=== PATIENT | female | born 2000 | race African-American/Black ===

== ENCOUNTER 2021-06-09 23:47 | Inpatient (IN) ==
[2021-06-10] MEDS ORDERED: BUTORPHANOL 2 MG/ML VIAL IV PRN (00:08)
[2021-06-10] MEDS ORDERED: ONDANSETRON 4 MG/2 ML VIAL IV PRN ×2 (00:08→16:10)
[2021-06-10] MEDS ORDERED: AMPICILLIN INJ 2,000 MG in SODIUM CHLORIDE 0.9% 100 ML IV ONE (00:12)
[2021-06-10] MEDS: LACTATED RINGERS 1,000 ML IV SCH ×3 (00:50→07:23)
[2021-06-10 01:01] LABS: Basophils % 0.5 % (0.0-0.8); Eosinophils # 0.1 10*3/uL (0.0-0.87); Eosinophils % 0.6 % (0.00-10.9); Hematocrit 31.6 VOL% (35.7-47.0); Hemoglobin 10.3 GM/DL (12.0-16.0); Immature Granulocytes % 0.4 %; Immature Granulocytes Absolute 0.03 #; Lymphocytes # 2.4 10*3/uL (1.4-4.0); Lymphocytes % 30.2 % (21.3-54.2); Mean Corpuscular HGB Conc 32.6 GM/DL (32-36); Mean Corpuscular Volume 91.9 FL (87-102); Mean Platelet Volume 10.6 FL (9.6-12.0); Monocytes % 10.5 % (1.7-12.7); Neutrophils % 57.8 % (38.7-73.9); Platelet Count 276 T/CUMM (130-400); Red Blood Count 3.44 MC/CUMM (3.8-5.5); Red Cell Distribution Width 13.2 % (9.3-17.3)
[2021-06-10 01:33] LABS: Albumin 2.8 G/DL (3.4-5.0); Bilirubin,Total 0.5 MG/DL (0.20-1.00); Calcium 8.4 MG/DL (8.5-10.1); Osmolality,Calculated 270.7 MOS/KG (273-304); Potassium 3.5 MMOL/L (3.5-5.1); Total Protein 6.9 G/DL (6.4-8.2)
[2021-06-10] MEDS ORDERED: OXYTOCIN/LR 20 UNIT/1,000 ML BAG IV PRN (03:04)
[2021-06-10] MEDS ORDERED: hydrOXYzine HCL 25 MG/1 ML VIAL IM PRN (04:17)
[2021-06-10] MEDS ORDERED: ePHEDrine 50 MG/ML VIAL IV PRN (04:17)
[2021-06-10] MEDS ORDERED: NALOXONE 0.4 MG/ML VIAL IV PRN (04:17)
[2021-06-10] MEDS ORDERED: diphenhydrAMINE 50 MG/1 ML VIAL IV PRN ×2 (04:17)
[2021-06-10] MEDS ORDERED: PROMETHAZINE 25 MG/1 ML VIAL IM PRN (04:17)
[2021-06-10] MEDS ORDERED: CITRIC ACID/SODIUM CITRATE 30 ML UDCUP PO ONE (04:17)
[2021-06-10] MEDS ORDERED: FAMOTIDINE 20 MG/2 ML VIAL IV ONE (04:17)
[2021-06-10] MEDS ORDERED: fentaNYL 2 MCG/ROPIV 0.2% EPID 100 ML EPIDURAL SCH (04:30)
[2021-06-10] MEDS: AMPICILLIN INJ 1,000 MG in SODIUM CHLORIDE 0.9% 100 ML IV SCH ×2 (04:47→10:32)
[2021-06-10] MEDS ORDERED: METHYLERGONOVINE 0.2 MG/1 ML AMP ONE (06:26)
[2021-06-10] MEDS ORDERED: TRANEXAMIC ACID 1,000 MG/10 ML VIAL ONE (06:26)
[2021-06-10] MEDS ORDERED: miSOPROStoL 200 MCG TABLET ONE (06:26)
[2021-06-10] MEDS ORDERED: CARBOPROST TROMETHAMINE 250 MCG/ML AMP IM ONE (06:27)
[2021-06-10] MEDS ORDERED: TERBUTALINE 1 MG/1 ML VIAL SUBCUT ONE (06:33)
[2021-06-10 06:34] LABS: Bacteria,Urine Occasional /HPF (Few); Bilirubin,Urine Negative (Negative); Blood, Urine Negative (Negative); Glucose,Urine (UA) Negative (Negative); Ketones,Urine Negative (Negative); Nitrite,Urine Negative (Negative); Protein,Urine Negative; RBC,Urine 1 /HPF (0-4); Squamous Epithelial Cell,Urine Occasional /HPF (0-10); Urine Appearance CLEAR (Clear); Urine Color Yellow (Yellow); Urine Specific Gravity 1.005 (1.001-1.035); Urine Urobilinogen < 2.0 EU/DL (0.2-1.0)
[2021-06-10] MEDS ORDERED: LIDOCAINE 1% 50 ML VIAL ONE (09:57)
[2021-06-10 10:05] LABS: Cord Venous Blood HCO3 16.1 MMOL/L; Cord Venous Blood PCO2 55.8 MMHG; Cord Venous Blood PO2 24.2
[2021-06-10] MEDS ORDERED: OXYTOCIN/LR 20 UNIT/1,000 ML BAG IV ONE (12:52)
[2021-06-10] MEDS ORDERED: WITCH HAZEL PADS 100/JAR TOP PRN (12:52)
[2021-06-10] MEDS ORDERED: ACETAMINOPHEN 325 MG TABLET PO PRN ×2 (12:52→16:10)
[2021-06-10] MEDS ORDERED: HYDROCORTISONE 2.5% RECTAL CREAM 30 GM TUBE TOP PRN (12:52)
[2021-06-10] MEDS ORDERED: BENZOCAINE 20%/MENTHOL 0.5% SPRAY 56 GM CAN TOP PRN (12:52)
[2021-06-10] MEDS ORDERED: BISACODYL 10 MG SUPP RECTAL PRN ×2 (12:52→16:10)
[2021-06-10] MEDS ORDERED: DIPH/TET/ACEL PERT BOOSTER VACCINE 0.5 ML VIAL IM ONE (12:52)
[2021-06-10] MEDS ORDERED: MAGNESIUM HYDROXIDE SUSP 30 ML UDCUP PO PRN (16:10)
[2021-06-10] MEDS ORDERED: IBUPROFEN 800 MG TABLET PO PRN (16:10)
[2021-06-10] MEDS ORDERED: LACTATED RINGERS 1,000 ML IV SCH (16:30)
[2021-06-10] MEDS: IBUPROFEN 800 MG TABLET PO PRN (19:17)
[2021-06-10] MEDS: DOCUSATE SODIUM 100 MG CAPSULE PO SCH ×2 (19:18→21:52)
[2021-06-10 20:09] LABS: Basophils % 0.2 % (0.0-0.8); Eosinophils % 0.1 % (0.00-10.9); Hematocrit 26.5 VOL% (35.7-47.0); Immature Granulocytes % 0.7 %; Immature Granulocytes Absolute 0.08 #; Lymphocytes # 2.2 10*3/uL (1.4-4.0); Lymphocytes % 18.3 % (21.3-54.2); Mean Corpuscular Volume 91.1 FL (87-102); Mean Platelet Volume 10.3 FL (9.6-12.0); Monocytes % 10.8 % (1.7-12.7); Neutrophils % 69.9 % (38.7-73.9); Platelet Count 205 T/CUMM (130-400); Red Blood Count 2.91 MC/CUMM (3.8-5.5); Red Cell Distribution Width 13.2 % (9.3-17.3); White Blood Count 12.1 T/CUMM (4-12)
[2021-06-10 20:29] LABS: INR 0.9; PT Patient Result 10.4 SECS (10.5-12.0); Partial Thromboplastin Time 32.2 SECS (23.9-33.8)
[2021-06-10 20:36] LABS: Bilirubin,Total 0.6 MG/DL (0.20-1.00); Calcium 8.1 MG/DL (8.5-10.1); Osmolality,Calculated 276.5 MOS/KG (273-304); Total Protein 5.3 G/DL (6.4-8.2)
[2021-06-10] MEDS ORDERED: DOCUSATE SODIUM 100 MG CAPSULE PO SCH (21:00)
[2021-06-10 21:59] LABS: Bilirubin,Urine Negative (Negative); Blood, Urine Large mg/dL (Negative); Glucose,Urine (UA) Negative (Negative); Ketones,Urine Negative (Negative); Mucus,Urine Occasional /LPF (Occasional); Nitrite,Urine Negative (Negative); Protein,Urine Negative; RBC,Urine 56 /HPF (0-4); Squamous Epithelial Cell,Urine Occasional /HPF (0-10); Urine Appearance CLEAR (Clear); Urine Color Straw (Yellow); Urine Specific Gravity 1.003 (1.001-1.035); Urine Urobilinogen < 2.0 EU/DL (0.2-1.0)
[2021-06-10] MEDS: POTASSIUM CHLORIDE 20 MEQ TABLET PO PRN (22:14)
[2021-06-11] MEDS: POTASSIUM CHLORIDE 20 MEQ TABLET PO PRN ×3 (00:45→05:05)
[2021-06-11 05:55] LABS: Basophils # 0.1 10*3/uL (0.0-0.2); Basophils % 0.5 % (0.0-0.8); Eosinophils # 0.1 10*3/uL (0.0-0.87); Eosinophils % 0.6 % (0.00-10.9); Hematocrit 27.6 VOL% (35.7-47.0); Hemoglobin 9.1 GM/DL (12.0-16.0); Immature Granulocytes % 0.5 %; Immature Granulocytes Absolute 0.06 #; Lymphocytes # 3.4 10*3/uL (1.4-4.0); Lymphocytes % 30.4 % (21.3-54.2); Mean Platelet Volume 10.6 FL (9.6-12.0); Monocytes % 10.4 % (1.7-12.7); Neutrophils % 57.6 % (38.7-73.9); Platelet Count 212 T/CUMM (130-400); Red Cell Distribution Width 13.3 % (9.3-17.3); White Blood Count 11.1 T/CUMM (4-12)
[2021-06-11 08:03] LABS: Platelet Estimate Normal
[2021-06-11] MEDS ORDERED: metroNIDAZOLE 500 MG TABLET PO ONE (09:00)
[2021-06-11] MEDS: MULTIVITAMIN (PRENATAL) TABLET PO SCH (09:16)
[2021-06-11] MEDS: DOCUSATE SODIUM 100 MG CAPSULE PO SCH ×2 (09:16→20:12)
[2021-06-11] MEDS: IBUPROFEN 800 MG TABLET PO PRN (20:12)
[2021-06-12] MEDS: IBUPROFEN 800 MG TABLET PO PRN ×2 (04:19→18:21)
[2021-06-12] MEDS: DOCUSATE SODIUM 100 MG CAPSULE PO SCH ×2 (07:44→10:54)
[2021-06-12] MEDS: MULTIVITAMIN (PRENATAL) TABLET PO SCH ×2 (07:47→10:52)
[2021-06-12 19:06] VITALS: BP 118/76
== END 2021-06-12 18:30 | disposition home or self-care (01) | DRG 560 ==
LOC: N.LD 23:47 → N.OB 06-10 12:25
PROVIDERS: ADMIT Obstetrics & Gynecology; ATTEND Nurse Practitioner

== ENCOUNTER 2023-01-02 14:02 | Inpatient (IN) ==
[2023-01-02 16:07] LABS: Bilirubin,Urine Negative (Negative); Blood, Urine Negative (Negative); Glucose,Urine (UA) Negative (Negative); Ketones,Urine Negative (Negative); Nitrite,Urine Negative (Negative); Protein,Urine Negative (Negative); Urine Appearance Clear (Clear); Urine Color Yellow (Yellow); Urine Specific Gravity 1.015 (1.001-1.035); Urine Urobilinogen 0.2 eU/dL (<2.0)
[2023-01-02 16:08] LABS: RBC,Urine 1 /HPF (0-4); Squamous Epithelial Cell,Urine Occasional /HPF (0-10)
[2023-01-02 17:52] LABS: Barbiturates Screen,Urine Negative (Negative); Benzodiazepines Screen,Urine Negative (Negative); Cannabinoid Screen,Urine Negative (Negative); Opiate Screen,Urine Negative (Negative); Phencyclidine Screen,Urine Negative (Negative)
[2023-01-03] MEDS ORDERED: OXYTOCIN/LR 20 UNIT/1,000 ML BAG IV ONE ×2 (07:32→16:05)
[2023-01-03] MEDS ORDERED: miSOPROStoL 200 MCG TABLET RECTAL PRN (07:32)
[2023-01-03] MEDS ORDERED: TRANEXAMIC ACID 1,000 MG in SODIUM CHLORIDE 0.9% 100 ML IV PRN (07:32)
[2023-01-03] MEDS ORDERED: METHYLERGONOVINE 0.2 MG/1 ML AMP IM PRN (07:32)
[2023-01-03] MEDS ORDERED: BUTORPHANOL 2 MG/ML VIAL IV PRN (07:32)
[2023-01-03] MEDS ORDERED: ONDANSETRON 4 MG/2 ML VIAL IV PRN (07:32)
[2023-01-03] MEDS ORDERED: CARBOPROST TROMETHAMINE 250 MCG/ML AMP IM PRN (07:32)
[2023-01-03] MEDS ORDERED: MEPERIDINE 50 MG/1 ML VIAL IV PRN (07:32)
[2023-01-03] MEDS ORDERED: AMPICILLIN INJ 2,000 MG in SODIUM CHLORIDE 0.9% 100 ML IV ONE (07:37)
[2023-01-03] MEDS ORDERED: LACTATED RINGERS 1,000 ML IV SCH (08:00)
[2023-01-03 08:02] LABS: Basophils % 0.5 % (0.0-0.8); Eosinophils % 0.5 % (0.00-10.9); Hematocrit 28.3 VOL% (35.7-47.0); Hemoglobin 9.1 GM/DL (12.0-16.0); Immature Granulocytes % 0.4 %; Immature Granulocytes Absolute 0.03 #; Lymphocytes # 3.2 10*3/uL (1.4-4.0); Lymphocytes % 40.3 % (21.3-54.2); Mean Corpuscular HGB Conc 32.2 GM/DL (32-36); Mean Corpuscular Volume 86.5 FL (87-102); Mean Platelet Volume 9.6 FL (9.6-12.0); Monocytes # 0.7 10*3/uL (0.11-0.8); Monocytes % 8.4 % (1.7-12.7); Neutrophils % 49.9 % (38.7-73.9); Platelet Count 339 T/CUMM (130-400); Red Blood Count 3.27 MC/CUMM (3.8-5.5); White Blood Count 7.89 T/CUMM (4-12)
[2023-01-03] MEDS: OXYTOCIN/LR 20 UNIT/1,000 ML BAG IV SCH ×2 (09:05→13:59)
[2023-01-03] MEDS ORDERED: ePHEDrine 50 MG/ML VIAL IV PRN (09:25)
[2023-01-03] MEDS ORDERED: PROMETHAZINE 25 MG/1 ML VIAL IM ONE (09:25)
[2023-01-03] MEDS ORDERED: hydrOXYzine HCL 25 MG/1 ML VIAL IM PRN (09:25)
[2023-01-03] MEDS ORDERED: NALOXONE 0.4 MG/ML VIAL IV PRN (09:25)
[2023-01-03] MEDS ORDERED: diphenhydrAMINE 50 MG/1 ML VIAL IV PRN ×2 (09:25)
[2023-01-03] MEDS ORDERED: fentaNYL 2 MCG/ROPIV 0.2% EPID 100 ML EPIDURAL SCH (09:30)
[2023-01-03] MEDS ORDERED: FAMOTIDINE 20 MG/2 ML VIAL IV ONE (09:36)
[2023-01-03] MEDS ORDERED: CITRIC ACID/SODIUM CITRATE 30 ML UDCUP PO ONE (09:40)
[2023-01-03 10:58] LABS: RBC,Urine <1 /HPF (0-4)
[2023-01-03 11:01] LABS: Bilirubin,Urine Negative (Negative); Blood, Urine Negative (Negative); Glucose,Urine (UA) Negative (Negative); Ketones,Urine Negative (Negative); Nitrite,Urine Negative (Negative); Protein,Urine Negative (Negative); Urine Appearance Clear (Clear); Urine Color Light Yellow (Yellow); Urine Specific Gravity 1.015 (1.001-1.035); Urine Urobilinogen 0.2 eU/dL (<2.0); Urine pH 7.5 (4.5-8.0)
[2023-01-03] MEDS ORDERED: miSOPROStoL 200 MCG TABLET ONE (11:12)
[2023-01-03] MEDS ORDERED: SODIUM CHLORIDE 0.9% 0 ML IV ONE (11:12)
[2023-01-03] MEDS ORDERED: METHYLERGONOVINE 0.2 MG/1 ML AMP ONE (11:12)
[2023-01-03] MEDS ORDERED: TRANEXAMIC ACID 1,000 MG/10 ML VIAL ONE (11:12)
[2023-01-03] MEDS ORDERED: CARBOPROST TROMETHAMINE 250 MCG/ML AMP IM ONE (11:13)
[2023-01-03] MEDS ORDERED: AMPICILLIN INJ 1,000 MG in SODIUM CHLORIDE 0.9% 100 ML IV SCH (11:30)
[2023-01-03 13:00] LABS: Cord Arterial Blood HCO3 20.9 MMOL/L
[2023-01-03 13:03] LABS: Cord Venous Blood HCO3 21.9 MMOL/L; Cord Venous Blood PCO2 45.2 MMHG; Cord Venous Blood PO2 26.7
[2023-01-03] MEDS ORDERED: DIPH/TET/ACEL PERT BOOSTER VACCINE 0.5 ML VIAL IM ONE (16:05)
[2023-01-03] MEDS ORDERED: RHO(D) IMMUNE GLOBULIN 300 MCG SYRINGE IM ONE (16:05)
[2023-01-03] MEDS ORDERED: WITCH HAZEL PADS 100/JAR TOP PRN (16:05)
[2023-01-03] MEDS ORDERED: MEASLES/MUMPS/RUBELLA VACCINE 0.5 ML VIAL SUBCUT ONE (16:05)
[2023-01-03] MEDS ORDERED: oxyCODONE/ACETAMINOPHEN 5-325 MG TABLET PO PRN ×2 (16:05)
[2023-01-03] MEDS ORDERED: BISACODYL 10 MG SUPP RECTAL PRN (16:05)
[2023-01-03] MEDS ORDERED: BENZOCAINE 20%/MENTHOL 0.5% SPRAY 56 GM CAN TOP PRN (16:05)
[2023-01-03] MEDS ORDERED: HYDROCORTISONE 2.5% RECTAL CREAM 30 GM TUBE TOP PRN (16:05)
[2023-01-03] MEDS ORDERED: LANOLIN 50% CREAM 0.3 OZ TUBE TOP PRN (16:05)
[2023-01-03] MEDS ORDERED: ACETAMINOPHEN 325 MG TABLET PO PRN (16:05)
[2023-01-03] MEDS: IBUPROFEN 800 MG TABLET PO PRN ×2 (16:24→23:28)
[2023-01-03] MEDS: DOCUSATE SODIUM 100 MG CAPSULE PO SCH (20:28)
[2023-01-04 05:16] LABS: Basophils # 0.1 10*3/uL (0.0-0.2); Basophils % 0.5 % (0.0-0.8); Eosinophils # 0.1 10*3/uL (0.0-0.87); Eosinophils % 0.5 % (0.00-10.9); Hematocrit 29.1 VOL% (35.7-47.0); Hemoglobin 9.1 GM/DL (12.0-16.0); Immature Granulocytes % 0.5 %; Immature Granulocytes Absolute 0.06 #; Lymphocytes # 3.3 10*3/uL (1.4-4.0); Lymphocytes % 25.8 % (21.3-54.2); Mean Corpuscular HGB Conc 31.3 GM/DL (32-36); Mean Corpuscular Volume 87.4 FL (87-102); Mean Platelet Volume 10.1 FL (9.6-12.0); Monocytes # 1.2 10*3/uL (0.11-0.8); Monocytes % 9.2 % (1.7-12.7); Neutrophils % 63.5 % (38.7-73.9); Platelet Count 333 T/CUMM (130-400); Red Blood Count 3.33 MC/CUMM (3.8-5.5); Red Cell Distribution Width 13.8 % (9.3-17.3); White Blood Count 12.87 T/CUMM (4-12)
[2023-01-04] MEDS: DOCUSATE SODIUM 100 MG CAPSULE PO SCH ×2 (09:16→20:22)
[2023-01-04] MEDS: IBUPROFEN 800 MG TABLET PO PRN (21:31)
[2023-01-05] MEDS: IBUPROFEN 800 MG TABLET PO PRN (06:40)
[2023-01-05] MEDS: DOCUSATE SODIUM 100 MG CAPSULE PO SCH (08:39)
[2023-01-05] MEDS ORDERED: MULTIVITAMIN (PRENATAL) TABLET PO SCH (09:00)
[2023-01-05 11:28] VITALS: BP 119/57
== END 2023-01-05 13:37 | disposition home or self-care (01) | DRG 560 ==
LOC: N.LDOUT 14:02 → N.LD 14:04 → N.OB 01-03 15:50
PROVIDERS: ADMIT Obstetrics & Gynecology; ATTEND Obstetrics & Gynecology